=== PATIENT | male | born 1970 | race Caucasian/White ===

== ENCOUNTER 2017-03-22 08:37 | Day surgery (SDC) | payer BC ==
[~2017-03-22 08:37] MED LIST: HYDROmorphone HCL 2 MG/ML VIAL IV PRN; RINGERS SOLUTION,LACTATED 1,000 ML IV PRN; ROPIVACAINE HCL/PF 40 MG in NORMAL SALINE 16 ML IJ PRN; ceFAZolin SODIUM 1 GM VIAL IV PRN
--- OUTSIDE RECORDS SUMMARY | 2017-03-22 08:40 | XMS REPORT | Encounter Summary ---
:1970 Author Organization [employer] [place] [address] Care Team Providers Name Role Phone Unavailable Primary Care Provider Unavailable Encounter Details Date Type Department Care Team Description 12/12/2016 Abstract [facility] Gisela Elise CMA Gastroenterology [address] [place] [address] [place] [address] Social History Tobacco Use Types Packs/Day Years Used Date Never Smoker Smokeless Tobacco: Never Used Alcohol Use Drinks/Week oz/Week Comments No Sex Assigned at Date Recorded Not on file as of this encounter Plan of Treatment Date Type Specialty Care Team Description 05/17/2017 Appointment Gastroenterology Elizabeth Patel MD [address] [place] [address] as of this encounter Visit Diagnoses Not on filein this encounter
--- OUTSIDE RECORDS SUMMARY | 2017-03-22 08:40 | XMS REPORT | Encounter Summary ---
:1970 Author Organization [employer] [place] [address] Care Team Providers Name Role Phone Unavailable Primary Care Provider Unavailable Encounter Details Date Type Department Care Team Description 12/07/2016 Abstract [facility] Jaci Funez, learning and development director [address] [place] [address] [place] [address] Social History Tobacco Use Types Packs/Day Years Used Date Never Smoker Smokeless Tobacco: Never Used Alcohol Use Drinks/Week oz/Week Comments No Sex Assigned at Date Recorded Not on file as of this encounter Plan of Treatment Date Type Specialty Care Team Description 05/17/2017 Appointment Gastroenterology Elizabeth Patel MD [address] [place] [address] as of this encounter Visit Diagnoses Not on filein this encounter
--- OUTSIDE RECORDS SUMMARY | 2017-03-22 08:40 | XMS REPORT | Clinical Summary ---
:1970 Author Organization [employer] [place] [address] Care Team Providers Name Role Phone Unavailable Primary Care Provider Unavailable Source Comments This disclosure is being made pursuant to the [employer] program and maynot contain all information available regarding this patient.[employer] Allergies No Known Allergies Current Medications Be aware that medications may not be up to date as of this document. Alwaysverify current medications with the patient. Prescription Sig. Disp. Refills Start Date End Date Status sertraline (ZOLOFT) 50 Take 100 mg by 3 07/27/2016 Active MG tablet mouth nightly. terbinafine (LAMISIL) Take 1 tablet by 0 09/27/2016 Active 250 MG tablet mouth daily. docusate sodium Take 100 mg by Active (COLACE) 100 MG mouth daily. capsule Multiple Take 1 tablet by Active Vitamins-Minerals mouth daily. (MULTIVITAMIN MEN PO) omeprazole (PRILOSEC) Take 1 capsule by 60 capsule 0 12/06/2016 Active 40 MG mouth every capsuleIndications:Gas morning before troesophageal reflux breakfast. disease, esophagitis presence not specified Active Problems Not on file Family History Medical History Relation Name Comments Colon cancer Maternal Grandfather Cancer Other Diabetes Other Heart disease Other Heart failure Other Stroke Other Relation Name Status Comments Maternal Grandfather Other Social History Tobacco Use Types Packs/Day Years Used Date Never Smoker Smokeless Tobacco: Never Used Alcohol Use Drinks/Week oz/Week Comments No Sex Assigned at Date Recorded Not on file Last Filed Vital Signs Vital Sign Reading Time Taken Blood Pressure 142/86 11/09/2016 8:36 AM CDT Pulse 72 11/09/2016 8:36 AM CDT Temperature 36.3 C (97.3 F) 11/09/2016 8:36 AM CDT Respiratory Rate 18 10/13/2016 8:47 AM MANAGER WINTER Oxygen Saturation 97% 10/13/2016 8:47 AM MANAGER WINTER Inhaled Oxygen Concentration - - Weight 188.3 kg (415 lb 3.2 oz) 11/09/2016 8:36 AM CDT Height 195.6 cm (6' 5") 10/13/2016 8:47 AM MANAGER WINTER Body Mass Index 49.24 11/09/2016 8:36 AM CDT Plan of Treatment Date Type Specialty Care Team Description 05/17/2017 Appointment Gastroenterology Elizabeth Patel MD [address] [place] [address] Health Maintenance Due Date Last Done Comments Tetanus/Pertussis (1 - Tdap) 1987 INFLUENZA IMMUNIZATION (#1) 2017 Colonoscopy 12/06/2018 12/06/2016, 12/06/2016 Results Not on filefrom Last 3 Months Insurance Payer Benefit Plan / Group Subscriber ID Type Phone Address [facility] [id number] [facility] [address] [place] [address] Home: [address] [phone] [place], [place] [id number]
--- OUTSIDE RECORDS SUMMARY | 2017-03-22 08:40 | XMS REPORT | Encounter Summary ---
:1970 Author Organization [employer] [place] [address] Care Team Providers Name Role Phone Unavailable Primary Care Provider Unavailable Encounter Details Date Type Department Care Team Description 12/19/2016 Orders Only [facility] Provider, Not In Centralized Scanning System Social History Tobacco Use Types Packs/Day Years Used Date Never Smoker Smokeless Tobacco: Never Used Alcohol Use Drinks/Week oz/Week Comments No Sex Assigned at Date Recorded Not on file as of this encounter Plan of Treatment Date Type Specialty Care Team Description 05/17/2017 Appointment Gastroenterology Elizabeth Patel MD [address] [place] [phone] as of this encounter Results Tissue Exam (12/06/2016) Specimen Performing Laboratory Tissue in this encounter Visit Diagnoses Not on filein this encounter
--- OUTSIDE RECORDS SUMMARY | 2017-03-22 08:40 | XMS REPORT | Encounter Summary ---
:1970 Author Organization [employer] [place] [address] Care Team Providers Name Role Phone Unavailable Primary Care Provider Unavailable Encounter Details Date Type Department Care Team Description 12/18/2016 Orders Only [facility] Provider, Not In Centralized Scanning System Social History Tobacco Use Types Packs/Day Years Used Date Never Smoker Smokeless Tobacco: Never Used Alcohol Use Drinks/Week oz/Week Comments No Sex Assigned at Date Recorded Not on file as of this encounter Plan of Treatment Date Type Specialty Care Team Description 05/17/2017 Appointment Gastroenterology Elizabeth Patel MD [address] [place] [address] as of this encounter Visit Diagnoses Not on filein this encounter
--- OUTSIDE RECORDS SUMMARY | 2017-03-22 08:41 | XMS REPORT | Encounter Summary ---
:1970 Author Organization [employer] [place] [address] Care Team Providers Name Role Phone Unavailable Primary Care Provider Unavailable Encounter Details Date Type Department Care Team Description [facility]2016 [facility] legal cashier[address], [address] [place] [address] [place] [address] Social History Tobacco Use Types Packs/Day Years Used Date Never Smoker Smokeless Tobacco: Never Used Alcohol Use Drinks/Week oz/Week Comments No Sex Assigned at Date Recorded Not on file as of this encounter Plan of Treatment Date Type Specialty Care Team Description 05/17/2017 Appointment Gastroenterology Elizabeth Patel MD [address] [place] [address] as of this encounter Visit Diagnoses Not on filein this encounter
--- OUTSIDE RECORDS SUMMARY | 2017-03-22 08:41 | XMS REPORT | Encounter Summary ---
:1970 Author Organization [employer] [place] [address] Care Team Providers Name Role Phone Unavailable Primary Care Provider Unavailable Reason for Referral Referral (Less than 2 months) Status Reason Specialty Diagnoses / Referred By Referred To Procedures Contact Contact Authorized Specialty Gastroenterology Diagnoses Rectal bleeding Nitin Otoole MD Gastro Required [address] [place] [address] [address] [place] [address] Phone: Fax: Reason for Visit Reason Comments Annual Exam Encounter Details Date Type Department Care Team Description 10/13/2016 Office Visit [facility] Nitin Otoole, Chronic fatigue (Primary Dx); [place] [employer] Depression, unspecified depression type; [address] [facility], [address] [place] [address] Anxiety; [address] [place] [address] Rectal bleeding; [place] [address] [place] [address] Renal stones; [phone] Health care maintenance Social History Tobacco Use Types Packs/Day Years Used Date Never Smoker Smokeless Tobacco: Never Used Alcohol Use Drinks/Week oz/Week Comments No Sex Assigned at Date Recorded Not on file as of this encounter Last Filed Vital Signs Vital Sign Reading Time Taken Blood Pressure 186/84 10/13/2016 8:47 AM MACHINE RIGGER Pulse 80 10/13/2016 8:47 AM MACHINE RIGGER Temperature 37.3 C (99.2 F) 10/13/2016 8:47 AM MACHINE RIGGER Respiratory Rate 18 10/13/2016 8:47 AM MACHINE RIGGER Oxygen Saturation 97% 10/13/2016 8:47 AM MACHINE RIGGER Inhaled Oxygen Concentration - - Weight 186.4 kg (411 lb) 10/13/2016 8:47 AM MACHINE RIGGER Height 195.6 cm (6' 5") 10/13/2016 8:47 AM MACHINE RIGGER Body Mass Index 48.74 10/13/2016 8:47 AM MACHINE RIGGER in this encounter Progress Notes Nitin Otoole MD - 10/13/2016 8:51 AM CSTFormatting of this note may be different from the original. Subjective: Patient ID: Elliot Godoy is a 46 y.o. male. HPI Comments: 46yo WM here for KIRBY and for f/u depression/anxiety (sees Psychiatry), renal stones - will finish up the Flomax in the next few weeks ( has been seeing Urology), was also seeing podiatryfor onychomycosis (on Lamisil x 3 mos). No specific concerns but would like "full work-up" - and would like referral to GI because of Fam Hx of colon CA. Patient's problem list, medications, allergies, past medical, surgical, social and family histories were reviewed and updated as appropriate. Review of Systems Constitutional: Positive for fatigue. Negative for fever. HENT: Negative for sore throat and tinnitus. Eyes: Negative for visual disturbance. Respiratory: Negative for shortness of breath. Cardiovascular: Negative for chest pain and palpitations. Gastrointestinal: Positive for abdominal pain and blood in stool. Negative for nausea and vomiting. Occ RUQ pain - o/o x several mos Endocrine: Positive for heat intolerance. Negative for cold intolerance. Genitourinary: Negative for hematuria. Musculoskeletal: Positive for arthralgias. Neurological: Negative for syncope, light-headedness and headaches. Psychiatric/Behavioral: Negative for suicidal ideas. Objective: BP 186/84 mmHg | Pulse 80 | Temp(Src) 37.3 C (99.2 F) (Tympanic) | Resp 18 | Ht 1.956 m (6' 5") | Wt 186.428 kg (411 lb) | BMI 48.73 kg/m2 | SpO2 97% Body mass index is 48.73 kg/(m^2). Physical Exam Constitutional: Vital signs are normal. He appears well-developed. He is cooperative. HENT: Head: Normocephalic and atraumatic. Right Ear: Tympanic membrane normal. Left Ear: Tympanic membrane normal. Mouth/Throat: Oropharynx is clear and moist and mucous membranes are normal. Eyes: Conjunctivae, EOM and lids are normal. Neck: Normal range of motion. Neck supple. Carotid bruit is not present. Cardiovascular: Normal rate, regular rhythm and normal heart sounds. Pulmonary/Chest: Effort normal and breath sounds normal. No tachypnea. Abdominal: Soft. Normal appearance and bowel sounds are normal. There is tenderness in the right upper quadrant. There is positive Serna's sign. There is no rigidity, no rebound and no guarding. Genitourinary: Pt declines exam Lymphadenopathy: He has no cervical adenopathy. Neurological: He is alert. He has normal strength. No cranial nerve deficit or sensory deficit. Skin: Skin is warm, dry and intact. Psychiatric: He has a normal mood and affect. His speech is normal and behavior is normal. Judgment and thought content normal. Assessment/Orders: Diagnoses and all orders for this visit: Chronic fatigue - Comprehensive metabolic panel; Future - CBC auto differential; Future - TSH; Future - T4; Future - Urinalysis with microscopic; Future Depression, unspecified depression type Anxiety Rectal bleeding - Amb Ref to Gastroenterology Renal stones - PSA; Future Health care maintenance - Lipid panel; Future Plan: 1. Rectal bleeding - consult GI and follow up after that evaluation 2. Fatigue, chronic - RTO for labs as above and follow up after results 3. Depression/anxiety - continue current med and follow up with Psychiatry 4. Health Maintenance - FLP as above and follow up after results 5. Elevated BP - re-check BP and RTO for BP checks in this encounter Plan of Treatment Date Type Specialty Care Team Description 05/17/2017 Appointment Gastroenterology Elizabeth Patel MD [address] [place] [address] [phone] Name Priority Associated Diagnoses Order Schedule Amb Ref to Gastroenterology Routine Rectal bleeding Ordered: 10/13/2016 as of this encounter Results PSA (10/18/2016 8:44 AM) Component Value Ref Range PSA 0.80 0.00 - 4.00 ng/mL Specimen Performing Laboratory [facility] [employer] [facility] [address] [place] [address] Narrative Testing performed at [facility], [address] [place] [address].Ergonomics Consultant Hugo Joseph MD Urinalysis with microscopic (10/18/2016 8:44 AM) Component Value Ref Range *SULAIMAN TYPE Clean Catch Color, Fluid Yellow Yellow Clarity, Fluid Clear Clear Specific [place] 1.024 1.001 - 1.035 pH 5.5 5.0 - 8.0 Leukocyte Esterase, UA Negative Negative Nitrite Negative Negative Protein Negative Negative Glucose, Urinalysis Negative Negative Ketones, UA Negative Negative Urobilinogen Negative Negative Bilirubin Urine Negative Negative Blood Negative Negative WBC 0-2 0 - 2 RBC 0-2 0 - 2 Epithelial Cells, Fluid None <2+ Bacteria None None Specimen Performing Laboratory [employer] [facility] [address] [place] [address] Narrative Testing performed at [facility], [address] [place] [address].Ergonomics Consultant Hugo Joseph MD Specimen: UACUL T4 (10/18/2016 8:44 AM) Component Value Ref Range T4, Total 7.2 4.5 - 12.0 mcg/dL Specimen Performing Laboratory [facility] [address] [place] [address] Narrative Testing performed at: [employer] [address], [address], Ergonomics Consultant: GLORIA LANZA DO,MPH TSH (10/18/2016 8:44 AM) Component Value Ref Range TSH 1.650 0.350 - 4.940 uIU/mL Specimen Performing Laboratory [facility] [address] [place] [address] Narrative Testing performed at [facility], [address] [place] [address].Ergonomics Consultant Hugo Joseph MD Lipid panel (10/18/2016 8:44 AM) Component Value Ref Range Cholesterol 153Comment:Cholesterol preferred <200 mg/dL. 0 - 200 mg/dL Clinical correlation is essential. Triglycerides 109 0 - 200 mg/dL HDL Cholesterol 32(L)Comment:Low HDL cholesterol, (Major Risk >60 mg/dL Factor for CHD) LDL Calculated 99.2 mg/dL Comment: <100Optimal 100-129 Near Optimal/Above Optimal 130-159 Borderline High 160-189 High >sm=202Juqg High Cholesterol/HDL Ratio 4.8Comment:HDL:Chol ratio Average Risk 1:4.4-1:7.0, Clinical Correlation essential. Specimen Performing Laboratory [facility] [address] [place] [address] Narrative Testing performed at [facility], [address] [place] [address].Ergonomics Consultant Hugo Joseph MD CBC auto differential (10/18/2016 8:44 AM) Component Value Ref Range WBC 8.0 3.1 - 11.0 x10^3/uL RBC 4.50 4.29 - 5.55 x10^6/uL Hemoglobin 12.9(L) 13.3 - 16.5 g/dL Hematocrit 39.6 39.2 - 48.0 % MCV 88.0 81.0 - 98.0 fL MCH 28.7 27.2 - 33.3 pg MCHC 32.6 31.7 - 35.6 g/dL RDW 13.4 11.4 - 13.6 % SD-RDW 42.4 36.4 - 46.3 fL Platelets 297 147 - 370 x10^3/uL MPV 11.4 9.1 - 12.1 fL NE% 59.5 42.0 - 76.0 % %LYMPH 28.7 15.0 - 44.0 % %MONO 9.1 4.0 - 13.0 % % Eosinophils 1.9 0.0 - 6.0 % % Basophils 0.4 0.0 - 1.0 % Imm Gran Relative 0.4 0.0 - 1.0 % NE# 4.8 1.2 - 7.3 x10^3/uL Lymphs # 2.3 0.6 - 3.5 x10^3/uL [place]# 0.7 0.2 - 0.9 x10^3/uL Eosinophil # 0.2 0.0 - 0.4 x10^3/uL Baso# 0.0 0.0 - 0.1 x10^3/uL Imm Gran Absolute 0.03 0.00 - 0.10 x10^3/uL Specimen Performing Laboratory BLOOD [facility] [address] [place] [address] Narrative Testing performed at [facility], [address] [place] [address].Ergonomics Consultant Hugo Joseph MD Specimen: BLD Comprehensive metabolic panel (10/18/2016 8:44 AM) Component Value Ref Range Glucose 98 60 - 100 mg/dL Comment: Fasting Plasma Glucose (FPG)<100 MG/DL Impaired Fasting Glucose (IFG) 100-125 MG/DL Provisional Diagnosis of Diabetes Mellitus > yh=779 MG/DL (Diagnosis Must Be Confirmed) BUN, Blood 11 9 - 21 mg/dL Creatinine 0.7 0.7 - 1.4 mg/dL Glomerular Filtration Rate 110 >90 mL/min/1.73mm2 Estimate Glomerlular Filtration Rate 127Comment:The estimated GFR >90 mL/min/1.73mm2 Estimate- has not been validated for women or patients with serious comorbid conditions, or with extremes of body size, muscle mass, or nutritional status. Calcium 9.1 8.4 - 10.2 mg/dL Sodium 142 136 - 145 mmol/L Potassium 4.0 3.4 - 4.9 mmol/L Chloride 107 99 - 111 mmol/L CO2 27.8 21.0 - 32.0 mmol/L Albumin 3.7 3.5 - 5.0 g/dL Total Protein 7.1 6.1 - 8.0 g/dL Bilirubin Total 0.4 0.2 - 1.2 mg/dL Alkaline Phosphatase 98 40 - 150 U/L AST 18 5 - 34 U/L ALT 22 0 - 55 u/L Specimen Performing Laboratory [facility] [address] [place] [address] Narrative Testing performed at [facility], [address] [place] [address].Ergonomics Consultant Hugo Joseph MD in this encounter Visit Diagnoses Diagnosis Chronic fatigue - Primary Other malaise and fatigue Depression, unspecified depression type Anxiety Anxiety state, unspecified Rectal bleeding Hemorrhage of rectum and anus Renal stones Calculus of kidney Health care maintenance Unspecified general medical examination in this encounter
--- OUTSIDE RECORDS SUMMARY | 2017-03-22 08:41 | XMS REPORT | Encounter Summary ---
:1970 Author Organization [employer] [place] [address] Care Team Providers Name Role Phone Unavailable Primary Care Provider Unavailable Reason for Visit Reason Comments Rectal Bleeding Reports bright red blood in stools x 6 months. Denies any change in bowel habits. Reports BMs regular but stool is hard. Reports maternal grandfather had colon cancer. [employer] journeyman (Less than 2 months) Status Reason Specialty Diagnoses / Referred By Referred To Procedures Contact Contact Authorized Specialty Gastroenterology Diagnoses Rectal bleeding Nitin Otoole MD Gastro Required [address] [place] [phone] Phone: Fax: Encounter Details Date Type Department Care Team Description 11/09/2016 Office Visit [facility], Rectal bleeding ( Primary Dx); Gastroenterology Elizabeth Carrizales MD RUQ abdominal pain; [address] [place] [address] [place] [address] [place], [place] [id number] Social History Tobacco Use Types Packs/Day Years [...] F) 11/09/2016 8:36 AM CDT Respiratory Rate - - Oxygen Saturation - - Inhaled Oxygen Concentration - - Weight 188.3 kg (415 lb 3.2 oz) 11/09/2016 8:36 AM CDT Height - - Body Mass Index 49.24 11/09/2016 8:36 AM CDT in this encounter Instructions Patient Instructions - Elizabeth Patel MD - 11/09/2016 8:51 AM CDTI recommended conservative measures including high-fiber diet with suplementation , plenty fluid intake, continue to maintain soft stools, avoid heavy lifting, avoid spending long periods of time at the commode and switch regular toilet paper to babywipes. On the days of more frequent episodestry sitz baths and OTC Preparation H. in this encounter Progress Notes Elizabeth Patel MD - 11/09/2016 8:38 AM CDTFormatting of this note may be different from the original. [facility] [address] [facility] [address] Dept: [phone] Loc: [phone] Date: 11/09/2016 Name: Elliot Godoy : 1970 Age: 46 y.o. PCP: Nitin Otoole MD History of Present Illness: This patient was evaluated at the [facility] on 11/09/2016 Elliot Godoy is a 46 y.o. male who presents today with complaints of rectal bleeding. Patient has significant history of anxiety and depression. Patient reports a history of bright red blood per rectum for he past 6 months. Intermittent, was seen in associated with brown stools. No melena or maroon colored stools, No pain preceding bowel movements Bowel movements are every other day without any changes in frequency . Occasional hard stools with straining. No rectal pain, burning or itching. No nausea or vomiting. Very occasional reflux symptoms Also endorses intermittent RUQ abdominal pain after eating fatty foods. No dysphagia or odynophagia. Appetite is normal and weight has been stable. No NSAIDs use. Maternal grandfather diagnosed at age 47 yo with colorectal cancer; celiac disease or inflammatory bowel disease No previous colonoscopies or upper endoscopies. Labs showed a hemoglobin of 12.9 with a normal MCV of 88. Normal white blood cell count and platelets. BMP and LFTs also normal. Past Surgical History Past Surgical History Procedure Laterality Date No surgical history Past Medical History: Past Medical History Diagnosis Date Anxiety Depression Kidney stone There is no problem list on file for this patient. Social History: reports that he has never smoked. He has never used smokeless tobacco. He reports that he does not drink alcohol or use illicit drugs. Family History Family History Problem Relation Age of Onset Diabetes Other Cancer Other Heart disease Other Heart failure Other Stroke Other Colon cancer Maternal Grandfather Medications: Outpatient Encounter Prescriptions as of 11/09/2016 Medication Sig Dispense Refill docusate sodium (COLACE) 100 MG capsule Take 100 mg by mouth daily. Multiple Vitamins-Minerals (MULTIVITAMIN MEN PO) Take 1 tablet by mouth daily. sertraline (ZOLOFT) 50 MG tablet Take 100 mg by mouth nightly. 3 terbinafine (LAMISIL) 250 MG tablet Take 1 tablet by mouth daily. 0 [DISCONTINUED] tamsulosin HCl (FLOMAX) 0.4 MG capsule Take 1 capsule by mouth daily. At 6 pm 0 No facility-administered encounter medications on file as of 11/09/2016. Preferred Pharmacy: [facility] [address] [place] [address] AT SEC OF [facility] & [address] [place] [phone] No Known Allergies No future appointments. Patient's problem list, medications, allergies, past medical, surgical, social and family histories were reviewed and updated as appropriate. Review of Systems Constitutional: Negative. HENT: Negative for hearing loss, congestion and sore throat. Eyes: Negative for blurred vision and pain. Respiratory: Negative for cough and shortness of breath. Cardiovascular: Negative for chest pain and palpitations. Gastrointestinal: as per HPI Genitourinary: Negative for dysuria and hematuria. Musculoskeletal: Negative for myalgias and joint pain. Skin: Negative. Neurological: Negative for dizziness, seizures and headaches. Endo/Heme/Allergies: Negative for environmental allergies. Does not bruise/ bleed easily. All other systems reviewed and are negative. Objective: Blood pressure 142/86, pulse 72, temperature 36.3 C (97.3 F), temperature source Other Device (Comment), weight 188.333 kg (415 lb 3.2 oz). Body mass index is 49.23 kg/(m^2). Physical Exam General: well-developed, well-nourished, and in no distress. Head: Normocephalic and atraumatic. Eyes: no icterus Mouth/Throat: Oropharynx is clear and moist. Neck: No tracheal deviation present. No thyromegaly present. Cardiovascular: Normal rate, regular rhythm, normal heart sounds. Pulmonary/Chest: Effort normal and breath sounds normal. No wheezes or rales. Abdominal: Soft. Nontender and nondistended. Bowel sounds are normal. No hepatosplenomegaly. There is no rigidity and no guarding. Rectal: No external hemorrhoids. No masses palpated on digital rectal examination. Brown stools on rectal vault Lymphadenopathy: No cervical adenopathy. No pedal edema. Neurological: Alert and oriented to person, place, and time. Gait normal. Skin: Skin is warm and dry. No rashes. Laboratory Assessment& Plan: 1. Rectal bleeding 2. RUQ abdominal pain US ABDOMEN LTD In summary, Ms. Marcelo Loya is a 46-year-old male with a history of depression and anxiety who is presenting for evaluation of rectal bleeding for the past 6 months as well as right upper quadrant abdominal pain. Description of rectal bleeding is consistent with a hemorrhoidal in etiology; despite that I could not encounter any external hemorrhoids on physical examination. He does have evidenceof mild normocytic anemia and a positive family history for colorectal cancer. For those reasons I will proceed with a diagnostic colonoscopy. I will also obtain a right upper quadrant abdominal ultrasound to evaluate for gallbladder disease and proceed with a diagnostic upper endoscopy to rule out peptic ulcer disease. I also recommended conservative measures including high-fiber diet with suplementation, plenty fluid intake, maintain soft stools, avoid heavy lifting, avoid spending long periods of time at the commode and switch regular toilet paper to baby wipes.On the days of more frequent episodestry sitz baths and OTC Preparation H. The risks and benefits of my recommendations, as well as other treatment options were discussed with the patient today. All questions were answered. Follow up: 6 months and as needed. Thank you Dr. Otoole for your referral. Please do not hesitate to contact me if you have any questions. Elizabeth Patel MD 11/09/2016 in this encounter Plan of Treatment Date Type Specialty Care Team Description 05/17/2017 Appointment Gastroenterology Elizabeth Patel MD [address] [place] [address] [phone] as of this encounter Results US ABDOMEN LTD (11/13/2016 7:15 AM) Specimen Performing Laboratory [facility] Narrative ABDOMEN LTD Clinical History: Right upper quadrant pain 5-6 months COMPARISON: CT of the abdomen and pelvis with IV contrast 04/20/2010 TECHNIQUE: Ultrasound abdomen Limited, 43 images FINDINGS: Increased echogenicity in the liver compatible with hepatic steatosis.There is a focal fatty sparing seen near the gallbladder fossa.No stones or sludge identified.Normal gallbladder wall thickness at 2.5 mm.No pericholecystic fluid. The common bile duct is normal caliber at 2.9 mm. The pancreas is not well-visualized on this exam due to overlying bowel gas.Survey views of the right kidney, without hydronephrosis. IMPRESSION: 1.Hepatic steatosis with areas of focal fatty sparing. 2.No evidence of cholecystitis or cholelithiasis. 3.The common bile duct has normal caliber at 2.9 mm. THIS IS AN ELECTRONICALLY SIGNED REPORT BY READING PHYSICIAN: Eric Hill M.D.2016-11-13 07:59:06 Procedure Note Jorge Luis, External Ris In - 11/13/2016 7:59 AM CDT US ABDOMEN [facility] Clinical History: Right upper quadrant pain 5-6 months COMPARISON: CT of the abdomen and pelvis with IV contrast 04/20/2010 TECHNIQUE: Ultrasound abdomen Limited, 43 images FINDINGS: Increased echogenicity in the liver compatible with hepatic steatosis. There is a focal fatty sparing seen near the gallbladder fossa. No stones or sludge identified. Normal gallbladder wall thickness at 2.5 mm. No pericholecystic fluid. The common bile duct is normal caliber at 2.9 mm. The pancreas is not well-visualized on this exam due to overlying bowel gas. Survey views of the right kidney, without hydronephrosis. IMPRESSION: 1. Hepatic steatosis with areas of focal fatty sparing. 2. No evidence of cholecystitis or cholelithiasis. 3. The common bile duct has normal caliber at 2.9 mm. THIS IS AN ELECTRONICALLY SIGNED REPORT BY READING PHYSICIAN: Eric Hill M.D. 2016-11-13 07:59:06 in this encounter Visit Diagnoses Diagnosis Rectal bleeding - Primary Hemorrhage of rectum and anus RUQ abdominal pain Abdominal pain, right upper quadrant Family history of colon cancer Family history of malignant neoplasm of gastrointestinal tract in this encounter
--- OUTSIDE RECORDS SUMMARY | 2017-03-22 08:41 | XMS REPORT | Encounter Summary ---
:1970 Author Organization [employer] [place] [address] Care Team Providers Name Role Phone Unavailable Primary Care Provider Unavailable Encounter Details Date Type Department Care Team Description 10/12/2016 [facility] Jessica Sequeira, vacuum caster[address], [address] [place] [address] [place] [address] Social History Tobacco Use Types Packs/Day Years Used Date Never Smoker Alcohol Use Drinks/Week oz/Week Comments No Sex Assigned at Date Recorded Not on file as of this encounter Plan of Treatment Date Type Specialty Care Team Description 05/17/2017 Appointment Gastroenterology Elizabeth Patel MD [address] [place] [phone] as of this encounter Visit Diagnoses Not on filein this encounter
[2017-03-22] MEDS ORDERED: RINGERS SOLUTION,LACTATED 1,000 ML IV ONE ×2 (09:03→10:10)
[2017-03-22] MEDS ORDERED: BUPIVACAINE HCL/EPINEPHRINE 50 ML VIAL IJ ONE ×2 (09:40)
--- NOTE | 2017-03-22 10:30 | OR ---
Operative Report - Dictated Report Narrative: Date: 03/22/2017 Physician: Zenon Santoyo M.D. [employer] Instructor: Quinn Graves PA-C Preoperative diagnosis: Right Knee medial meniscus tear Postoperative diagnosis: Right Knee medial meniscus tear Procedure: Right knee arthroscopy with partial medial meniscectomy, chondroplasty of the medial femoral condyle Anesthesia: MAC Plus local Complications: None Estimated blood loss: Minimal Tourniquet time: None Specimens: None Retained implants: None Drains: None Indications: Elliot Is a 46 year-old male who has been followed in my clinic with complaints of knee pain consistent with suspected medial meniscal pathology. Physical exam and diagnostic imaging were consistent with these complaints and concern for medial meniscal pathology. Conservative measures have failed including, but not limited to, passage of time, activity modification, medications, and injections. The risks, benefits, and alternatives were discussed in clinic. The risks being , bleeding, infection, blood clots, nerve, tendon, ligament , blood vessel injury, persistent pain, arthrosis, need for additional procedures, and persistent symptoms. Consent was obtained in the clinic. Procedure: After marking the correct extremity in the preoperative holding area, a timeout was performed in the operating room. IV antibiotics consisting of 2 g of Ancef were administered prior to the procedure. A well-padded tourniquet was applied to the operative upper thigh. The leg was prepped and draped in a standard sterile fashion. 0.5% Marcaine with epinephrine was infused into the projected portal sites as well as the intra-articular space. A kevin incision was made for inferior lateral portal. A blunt trocar and cannula was introduced into the knee. The suprapatellar pouch revealed significant synovial inflammation and scattered small loose bodies. The medial patella facet showed grade 2 and grade 3 chondral changes. The lateral patella facet showed grade 3 chondral changes. The trochlea showed scattered grade 2 chondral changes. The lateral gutter revealed some loose bodies and small calcium deposits of the synovium. The medial gutter revealed no loose bodies. The medial joint space was then entered utilizing a lateral post and valgus stress. A spinal needle was utilized for guidance into placement of an anterior medial portal. This was placed just superior to the medial meniscus ensuring that we could reach the posterior aspect of the medial joint space. A kevin incision was made in the site, and the probe was introduced to the knee. The medial joint space was examined, and the medial femoral condyle showed an area approximately 3 x 4 cm of grade 3 chondral change with some small loose cartilage flaps. The medial tibial plateau showed scattered grade 2 and grade 3 chondral changes. The medial meniscus demonstrated a complex tear of the posterior horn. The notch was then examined, and the ACL was noted to be intact. The PCL was noted to be partially torn with a significant amount of fraying. The lateral joint space was then examined using a varus force in the figure 4 position. Lateral femoral condyle showed no significant chondral changes. Lateral tibial plateau showed scattered grade 2 chondral changes. The lateral meniscus showed no pathology. Having identified the surgical pathology, a series of biters and bret were utilized in order to debride the medial meniscus back to stable meniscal tissue. Light chondroplasty was performed to the medial femoral condyle. We returned to the patellofemoral compartment and used the shaver to suck up any sizable loose bodies. Once it was felt that we adequately addressed the pathology, the knee was thoroughly irrigated. The fluid was evacuated ensuring that we have removed all meniscal, chondral, and any other loose bodies. A final evaluation of the joint showed no additional pathology. The fluid was then evacuated of the knee, and the trocar and camera were removed from the joint. The wounds were closed with interrupted nylon after placing 20 mL of 0.2% ropivacaine into the joint. Dressings consisting of Xeroform, 4 x 4, ABD, soft roll, and an Gordon were applied. All sponge, needle, blade, and instrument counts were correct prior to closing the wounds. The patient was awoken and transferred to the post-anesthesia care unit in stable condition.
[2017-03-22] MEDS ORDERED: HYDROcodone/ACETAMINOPHEN 1 EACH TABLET PO PRN (11:14)
[2017-03-22] MEDS ORDERED: ACETAMINOPHEN 500 MG TABLET PO PRN (11:42)
[2017-03-22 12:15] VITALS: BP 150/79
== END 2017-03-22 08:38 | disposition home or self-care (01) ==
LOC: AMB 08:37
PROVIDERS: ATTEND Orthopaedic Surgery
PROC: 0SBC4ZZ Excision of Right Knee Joint, Percutaneous Endoscopic Approach (ICD-10-PCS; principal; 2017-03-22 11:45)
DX: M23.221 Derangement of posterior horn of medial meniscus due to old tear or injury, right knee (principal); K21.9 Gastro-esophageal reflux disease without esophagitis; J45.909 Unspecified asthma, uncomplicated; Z68.42 Body mass index [BMI] 45.0-49.9, adult